=== PATIENT | female | born 1985 | race Asian ===

== ENCOUNTER 2018-04-21 00:23 | Emergency (ER) | payer MEDICAID, SELFPAY ==
[2018-04-21 00:25] VITALS: BP 149/68; PULSE 104; RESP 16; TEMP 36.7; O2SAT 97; BMI 43.2
[2018-04-21 00:27] VITALS: BP 149/63; PULSE 104; RESP 16; TEMP 36.7; O2SAT 98
--- NOTE | 2018-04-21 00:32 | ED.VISSUMM ---
- ER Visit Summary Date of Service: 04/21/18 Chief Complaint: [blood in stool] History of Present Illness: The patient is a 32 F [that noted some bright red blood and clots in her stool yesterday. No abdominal pain. She does describe some hoarseness and general muscle aches. No fevers. She denies any cough or congestion. She overall appears well and nontoxic. She does not take any blood thinning medication. She states she just moved to the area and does not have a primary care physician. She has a history of narcolepsy and takes medications for this. She denies any vaginal bleeding or discharge or hematuria. She has no other complaints.] Physical Examination: [General: The patient appears well and in no apparent distress. Patient is resting comfortably on cart. Skin: Warm, dry, no pallor noted. No rash. Head: Normocephalic, atraumatic Neck: Supple, nontender. ENT: Moist mucus membranes, pharynx within normal limits. Cardiovascular: Regular Rate and Rhythm, no gallups or rubs Respiratory: Patient is in no distress, no accessory muscle use, lungs are clear to auscultation, no wheezing, rales or rhonchi Musculoskeletal: normal ROM, no deformity, no tenderness, no swelling. 2+ radial and DP pulses symmetric. GI: No tenderness to palpation, no masses appreciated. No rebound, guarding, or rigidity noted. Rectal: female RN at bedside, small external nonthrombosed and nonbleeding hemorrhoid, no active bleeding Neurological: A&O, normal strength and sensation. Psychiatric: Cooperative] Test Results: [] Emergency Department Course and Treatment: [Blood work overall unremarkable. Hemoglobin greater than 11. Patient had no bleeding throughout her stay in the emergency department. HCG was negative. I do not feel her presentations are consistent with significant GI bleed. BUN is normal. I feel the bright red blood per rectum is likely secondary to her small external nonthrombosed hemorrhoids on exam. I will write her a prescription for medication for the hemorrhoids and she will follow-up with referred primary provider. She was instructed to return with any new or worsening symptoms. Patient understands and is agreeable with this plan of care. Patient was discharged home in stable condition.] Treatment Plan: [see above] Disposition: [Discharge home, stable condition] Impression: [External hemorrhoid, nonthrombose, bright red blood per rectum] This note was generated with [employer] dictation software. It may contain incorrect words, spelling, and punctuation that were not noted in review of the chart prior to signing ED Disposition - Plan for ED Patient: Disposition: Home or Assisted Living Chief Complaint: GI Bleed Instructions: ED Hemorrhoids, ED Hematochezia Stable Prescriptions: Hydrocortisone Acetate [Anusol-Hc] 25 mg UT BID PRN PRN #14 supp.rect PRN Reason: hemorrhoids Referrals: Malcom Norris DO [STAFF PHYSICIAN] -
[2018-04-21] MEDS: 0.9% Normal Saline 1,000 ML 1000 ML IV (00:37)
[2018-04-21] MEDS: Ketorolac 15 MG/ML Vial IV (00:49)
[2018-04-21 01:00] LABS: Absolute Lymphocyte Count 3.77 X10^3/ul (0.83-4.51); Absolute Neutrophil Count 7.7 X10^3/uL (2.0-7.7); Basophil# 0.05 X10^3/uL; Basophil% 0.4 % (0-1); Eosinophil# 0.29 X10^3/uL; Eosinophils% 2.2 % (0-5); Hemoglobin 11.4 g/dl (12.0-15.0); Lymphocyte # 3.77 X10^3/ul (4.0); Lymphocyte % 28.9 % (19-41); Mean Corp Hgb Conc 31.7 g/gl (32-36); Mean Corpuscular Hgb 21.5 pg (27.0-32.0); Mean Corpuscular Volume 67.9 fL (81-99); Mean Platelet Vol. 9.7 fl (6.2-12.0); Monocyte# 1.17 X10^3/uL; Neutrophil # 7.71 X10^3/uL (2.7-7.7); Neutrophil % 59.1 % (47-70); Platelet Count 345 K/mm3 (150-450); RBC Distribution Width CV 18.6 % (11.6-14.6); RBC Distribution Width SD 45.6 fl (35.1-43.9)
[2018-04-21 01:05] LABS: POSITIVE COUNT NO; POSITIVE DIFFERENTIAL NO; POSITIVE MORPHOLOGY NO
[2018-04-21 01:17] LABS: Anion Gap 9 (5-15); BUN 9 mg/dL (7-18); BUN/Creat Ratio 11.1 RATIO (10-20); Calcium,Total 8.4 mg/dL (8.5-10.1); Chloride 110 mmol/L (98-107); Creatinine, Serum 0.81 mg/dL (0.55-1.02); EST Glomerular Filtration Rate 87 mL/min (>60); Est Glom Filt Rate - Afr Amer 105 mL/min (>60); Estimated Creatinine Clearance 90.55 ml/min; Glucose 103 mg/dL (74-106); Potassium 3.5 mmol/L (3.5-5.1); Sodium Level 143 mmol/L (136-145)
[2018-04-21 01:58] LABS: Internal QC Validated? YES +Cl - CLEAR BKGD; Pregnancy, Urine Negative Negative
[2018-04-21 02:23] VITALS: BP 152/80; PULSE 81; O2SAT 100
== END 2018-04-21 02:30 | disposition home or self-care (01) ==
PROVIDERS: Emergency Provider Emergency Medicine
DX: K64.4 Residual hemorrhoidal skin tags (principal); K92.1 Melena; G47.419 Narcolepsy without cataplexy; E66.9 Obesity, unspecified; Z68.41 Body mass index [BMI] 40.0-44.9, adult
CPT/HCPCS: 80048; 81025; 85025; 96361; 96374; 99283; J7030; A4216

== ENCOUNTER 2018-05-12 01:24 | Emergency (ER) | payer MEDICAID, SELFPAY ==
[2018-05-12] VITALS (7 sets, daily range): BP systolic 124–158; BP diastolic 76–102; PULSE 63–93; RESP 16–18; TEMP 37.1; O2SAT 99–100; BMI 95.7
[2018-05-12 02:12] LABS: Mucous, Urine 0 SEEN /hpf (<or=2+); White Blood Cells 0 SEEN /hpf (0-5)
[2018-05-12 02:13] LABS: Color, Urine Yellow (Yellow); Glucose, Dipstick Normal (Normal); Ketone-Dipstick Negative (Negative); Leukocyte Esterase-Dipstick Negative /ul (Negative); Nitrite-Dipstick Negative (Negative); Occult Blood-Urine 25 /ul (Negative); Protein-Dipstick 15 mg/dl (Negative); Specific Gravity, Urine 1.025 (1.002-1.030); Urine Bilirubin Dipstick Negative (Negative); Urine Clarity Sl. Cloudy (Clear); Urine Urobilinogen Normal (Normal)
[2018-05-12 02:19] LABS: Bacteria 1+ /hpf (None Seen); Red Blood Cells-Urine 0-5 SEEN /hpf (0-5); Squamous Epithelial Cells - UA 0-5 SEEN /hpf (5-10)
[2018-05-12 02:20] LABS: Internal QC Validated? YES +Cl - CLEAR BKGD; Pregnancy, Urine Negative Negative
--- NOTE | 2018-05-12 02:23 | CT_ITS ---
HISTORY: ABD PAIN TECHNIQUE: Helically acquired images were obtained of the abdomen and pelvis without oral or IV contrast as per renal stone protocol. A radiation dose optimization technique was used for this scan. IV Contrast dosage and agent: None. Oral contrast: None. COMPARISON: None FINDINGS: Lower thorax: Clear. No pleural effusion or pericardial effusion. Food contents within the stomach. Contracted gallbladder. No biliary dilatation or pericholecystic inflammatory change. Limited non-infusion exam. Allowing for this, negative liver, spleen, and pancreas. Both kidneys are normal in position. No renal or ureteral calculi and no hydronephrosis or hydroureter. Adrenal glands are not enlarged. Abdominal aorta is normal in caliber. No ascites or retroperitoneal lymphadenopathy. GI tract: No obstruction. Normal appendix. Pelvis: Anteverted uterus. Poor distention of the urinary bladder. No free fluid or lymphadenopathy. Bones: No acute osseous abnormality. CT/Abdomen/Pelvis without Cont IMPRESSION: Negative CT exam. No acute abdominal disease down 5. Individualized dose optimization techniques were used for this CT. at 0318 Reported and signed by: Jason Taveras MD Electronically Signed: Jason Taveras, at 3:17 EST Tel , Service support ,
[2018-05-12] MEDS: 0.9% Normal Saline 1,000 ML 999 ML IV (02:37)
[2018-05-12] MEDS: Ketorolac 30 MG/ML Syringe IV (02:37)
[2018-05-12 02:43] LABS: Absolute Lymphocyte Count 3.42 X10^3/ul (0.83-4.51); Absolute Neutrophil Count 7.4 X10^3/uL (2.0-7.7); Basophil# 0.03 X10^3/uL; Basophil% 0.3 % (0-1); Eosinophil# 0.26 X10^3/uL; Eosinophils% 2.2 % (0-5); Hemoglobin 10.9 g/dl (12.0-15.0); Lymphocyte # 3.42 X10^3/ul (4.0); Lymphocyte % 29.5 % (19-41); Mean Corp Hgb Conc 30.3 g/gl (32-36); Mean Corpuscular Hgb 21.3 pg (27.0-32.0); Mean Corpuscular Volume 70.3 fL (81-99); Mean Platelet Vol. 9.3 fl (6.2-12.0); Monocyte# 0.46 X10^3/uL; Neutrophil # 7.38 X10^3/uL (2.7-7.7); Neutrophil % 63.7 % (47-70); Platelet Count 367 K/mm3 (150-450); RBC Distribution Width CV 18.1 % (11.6-14.6); RBC Distribution Width SD 46.1 fl (35.1-43.9); Red Blood Count 5.12 M/mm3 (4.2-5.4); White Blood Count 11.6 K/mm3 (4.4-11.0)
[2018-05-12 02:44] LABS: Differential Indicated SCAN CRITERIA MET; POSITIVE COUNT NO; POSITIVE DIFFERENTIAL NO; POSITIVE MORPHOLOGY YES
[2018-05-12 02:52] LABS: BUN 10 mg/dL (7-18); Estimated Creatinine Clearance 100.55 ml/min; Glucose 108 mg/dL (74-106)
[2018-05-12 02:53] LABS: Anion Gap 5 (5-15); BUN/Creat Ratio 14.2 RATIO (10-20); Calcium,Total 8.4 mg/dL (8.5-10.1); Chloride 110 mmol/L (98-107); EST Glomerular Filtration Rate 103 mL/min (>60); Est Glom Filt Rate - Afr Amer 124 mL/min (>60); Potassium 3.7 mmol/L (3.5-5.1); Sodium Level 142 mmol/L (136-145)
--- NOTE | 2018-05-12 03:55 | US_ITS ---
HISTORY: PPelvic PainUS - Pelvic, TvagBILAT PELVIC PAIN X 1 DAY- WORSE ON LEFT SIDE TECHNIQUE: Transabdominal and transvaginal pelvic ultrasound was performed. COMPARISON: CT abdomen and pelvis 05/12/2018 FINDINGS: The uterus is anteverted and is borderline enlarged measuring 11.3 x 5 x 7 cm in longitudinal, AP, and transverse dimensions, respectively. The uterine myometrium is unremarkable. 0.9 cm cervical nabothian cyst. The endometrium is uniform and measures 0.8 cm in diameter which is normal. Both ovaries are identified and show normal flow without findings of torsion. The right ovary measures approximately 3.1 x 2.5 x 1.6 cm and the left ovary 3.4 x 2.5 x 2.4 cm. Left ovarian simple appearing 2.1 x 1.9 cm cyst. No free pelvic fluid. US/Pelvic (Non ) IMPRESSION: 1. No free fluid, ovarian torsion, or acute disease identified. 2. Borderline uterine enlargement. 3. Left ovarian 2.1 cm simple appearing cyst. at 0628 Reported and signed by: Jason Taveras MD Electronically Signed: Jason Taveras, at 6:26 EST Tel , Service support ,
--- NOTE | 2018-05-12 03:55 | US_ITS ---
HISTORY: PPelvic PainUS - Pelvic, TvagBILAT PELVIC PAIN X 1 DAY- WORSE ON LEFT SIDE TECHNIQUE: Transabdominal and transvaginal pelvic ultrasound was performed. COMPARISON: CT abdomen and pelvis 05/12/2018 FINDINGS: The uterus is anteverted and is borderline enlarged measuring 11.3 x 5 x 7 cm in longitudinal, AP, and transverse dimensions, respectively. The uterine myometrium is unremarkable. 0.9 cm cervical nabothian cyst. The endometrium is uniform and measures 0.8 cm in diameter which is normal. Both ovaries are identified and show normal flow without findings of torsion. The right ovary measures approximately 3.1 x 2.5 x 1.6 cm and the left ovary 3.4 x 2.5 x 2.4 cm. Left ovarian simple appearing 2.1 x 1.9 cm cyst. No free pelvic fluid. US/Transvaginal Non- IMPRESSION: 1. No free fluid, ovarian torsion, or acute disease identified. 2. Borderline uterine enlargement. 3. Left ovarian 2.1 cm simple appearing cyst. at 0628 Reported and signed by: Jason Taveras MD Electronically Signed: Jason Taveras, at 6:26 EST Tel , Service support ,
[2018-05-12] MEDS: Ondansetron 4 MG/2 ML Vial IV (04:11)
[2018-05-12] MEDS: Morphine 4 MG/ML Syringe IV (04:11)
[2018-05-12 06:10] LABS: Chlamydia Trachomatis by PCR Negative (Negative); Neisserai gonorrhoeae by PCR Negative (Negative); Probe Check PASS; Sample Adequacy Control PASS; Specimen Processing Control PASS
--- NOTE | 2018-05-12 06:30 | ED.DCSUM_ITS ---
- ER Visit Summary Date of Service: 05/12/18 Chief Complaint: Unable to pee since yesterday History of Present Illness: The patient is a 32 F who states she has been unable to void since yesterday. However on further history she is actually able to void small amount she describes dysuria as well as urinary urgency and frequency with frequently urinating small amounts. No hematuria. Her last menstrual period was around April 28. No vaginal bleeding. No vaginal discharge. She also complains of pelvic pain all the way across the lower abdomen. She reports nausea without vomiting. No diarrhea. No fevers. No history of prior similar symptoms. She does have a history of multiple C- sections as well as diagnostic laparoscopy. Physical Examination: Blood pressure 158/102 vitals otherwise normal Moist mucous membranes Heart regular rate and rhythm Lungs are clear Abdomen soft nondistended she does have some suprapubic and bilateral lower abdominal pain on palpation but no guarding, no rebound Alert Test Results: Labs notable for white blood cell count 11.6, hemoglobin 10.9. Chemistries unremarkable. Urinalysis shows 25 blood otherwise normal. negative. Wet prep negative. GC and Chlamydia negative. CT abdomen pelvis negative. Emergency Department Course and Treatment: Initially given patient's reports of dysuria frequency urgency suprapubic pain, we just sent off a urinalysis and to evaluate for UTI. These were unremarkable. At this point I considered distal ureteral calculus. IV was established, patient given IV Toradol. Laboratory studies were obtained as well as a CT of the abdomen and pelvis. This is also normal. Reevaluation she was sleeping comfortably but on waking states she had no improvement of her pain. Was given morphine and Zofran. Pelvic examination was performed which showed a very small amount of thin white vaginal discharge. No cervical friability or bleeding. She had some mild left adnexal tenderness on bimanual exam although I did not appreciate a mass. GC chlamydia and wet prep were sent all of which are normal. Patient sent for pelvic ultrasound. Ultrasound shows no free fluid. She does have a simple appearing 2.1 cm left ovarian cyst. She feels much better on reevaluation. She was given a referral to gynecology for outpatient follow-up. She was given a prescription for naproxen. Was advised on signs and symptoms to monitor for. She understands to return for new or worsening symptoms. She was discharged. Treatment Plan: [] Disposition: Discharge Impression: Left ovarian cyst This note was generated with [employer] dictation software. It may contain incorrect words, spelling, and punctuation that were not noted in review of the chart prior to signing ED Disposition - Plan for ED Patient: Referrals: Care Physician,No Primary [Primary Care Provider] -
--- NOTE | 2018-05-12 06:35 | ED.DEP ---
ED Disposition - Plan for ED Patient: Instructions: ED Cyst Ovarian Prescriptions: Naproxen [Naprosyn] 500 mg PO BID #14 tab Referrals: Care Physician,No Primary [Primary Care Provider] - Pauline Franks MD [STAFF PHYSICIAN] -
== END 2018-05-12 06:46 | disposition home or self-care (01) ==
PROVIDERS: Emergency Provider Emergency Medicine
DX: N83.292 Other ovarian cyst, left side (principal); Z72.0 Tobacco use
CPT/HCPCS: 74176; 76830; 76856; 80048; 81001; 81025; 85025; 87210; 87491; 87591; 93976; 96374; 96375; 99283; J2405

== ENCOUNTER 2018-06-18 06:00 | Emergency (ER) | payer MEDICAID, SELFPAY ==
[2018-05-12 01:24] VITALS: BMI 95.7
[2018-06-18 06:01] VITALS: BP 160/89; PULSE 88; RESP 18; TEMP 37.1; O2SAT 98; BMI 46.0
--- NOTE | 2018-06-18 06:20 | ED.DCSUM_ITS ---
- ER Visit Summary Date of Service: 06/18/18 Chief Complaint: Vomiting and diarrhea History of Present Illness: The patient is a 32 F who notes 1-1/2 days of vomiting and diarrhea. She denies any fever. She describes the diarrhea is nonbloody she notes a crampy intermittent abdominal pain. She states that she has not taken any Imodium. No rashes. No bad food exposure. No recent antibiotics. She has city water. Physical Examination: Afebrile vital signs are stable Gen: Well-nourished well-developed Head: Normocephalic atraumatic Eyes: Perrl EOMI ENT: TMs clear no rhinorrhea moist mucous membranes Neck: Supple no lymphadenopathy no JVD nontender CVS: Regular rate rhythm no murmurs normal S1-S2 Respiratory: No distress clear to auscultation bilaterally chest nontender Abdomen: Soft nontender nondistended normal bowel sounds no masses Back: Nontender Extremity: Nontender no edema Skin: Normal color no rash Neuro: alert orientated ?3 CN II-XII intact normal strength sensation reflexes gait cerebellar Psych: Normal affect normal mood Emergency Department Course and Treatment: Patient will be prescribed Zofran. Recommend Imodium. Oral hydration. Impression: 1. Acute gastroenteritis This note was generated with [employer] dictation software. It may contain incorrect words, spelling, and punctuation that were not noted in review of the chart prior to signing ED Disposition - Plan for ED Patient: Disposition: Home or Assisted Living Instructions: ED Gastroenteritis Viral Prescriptions: Ondansetron [Zofran Odt] 4 mg PO Q6H PRN PRN #20 tab PRN Reason: Nausea Referrals: Venancio Lott MD [STAFF PHYSICIAN] -
[2018-06-18] MEDS: Ondansetron ODT 4 MG Tablet PO (06:33)
[2018-06-18 06:50] VITALS: RESP 16
== END 2018-06-18 07:05 | disposition home or self-care (01) ==
PROVIDERS: Emergency Provider Emergency Medicine
DX: K52.9 Noninfective gastroenteritis and colitis, unspecified (principal); Z72.0 Tobacco use
CPT/HCPCS: 99282

== ENCOUNTER 2018-07-20 22:59 | Emergency (ER) | payer MEDICAID, SELFPAY ==
[2018-07-20 22:59] VITALS: BP 140/84; PULSE 89; RESP 16; TEMP 36.6; O2SAT 98; BMI 42.9
[2018-07-21] MEDS: Ketorolac 30 MG/ML Syringe IV (00:03)
[2018-07-21] MEDS: 0.9% Normal Saline 1,000 ML 999 ML IV (00:03)
[2018-07-21] MEDS: proCHLORPERazine 10 MG/2 ML Vial IV (00:03)
[2018-07-21] MEDS: DiphenhydrAMINE 50 MG/ML Syringe 25 MG IV (00:03)
--- NOTE | 2018-07-21 01:16 | ED.VISSUMM ---
- ER Visit Summary Date of Service: 07/21/18 Chief Complaint: Headache History of Present Illness: The patient is a 32 F who presents with a headache. Is been present for 1 week. She rates it as a 9 out of 10. She reports light and sound sensitivity as well. 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 She is tried Tylenol as well as a combination Tylenol caffeine pill without relief. She also has been complaining of some itching all over her body. She denies fevers chest pain shortness of breath nausea vomiting diarrhea. Physical Examination: Blood pressure 140/84 vitals otherwise normal Moist mucous membranes No distress Heart regular rate and rhythm Lungs are clear Abdomen soft Alert and oriented with no focal or lateralizing neurological deficits Test Results: Not indicated Emergency Department Course and Treatment: Patient was treated with IV fluids, Toradol, Compazine, Benadryl. On reevaluation she feels much better. Patient discharged. He understands to return for new or worsening symptoms. Treatment Plan: [] Disposition: Discharge Impression: Headache, improved This note was generated with [employer] dictation software. It may contain incorrect words, spelling, and punctuation that were not noted in review of the chart prior to signing ED Disposition - Plan for ED Patient: Referrals: Care Physician,No Primary [Primary Care Provider] -
--- NOTE | 2018-07-21 01:17 | ED.DEP ---
ED Disposition - Plan for ED Patient: Instructions: ED Cephalgia Unspecified Referrals: Care Physician,No Primary [Primary Care Provider] -
[2018-07-21 01:29] VITALS: BP 135/74; PULSE 68; RESP 17; O2SAT 99
== END 2018-07-21 01:38 | disposition home or self-care (01) ==
LOC: ED 23:57
PROVIDERS: Emergency Provider Emergency Medicine
DX: R51 Headache (principal); G47.419 Narcolepsy without cataplexy; Z72.0 Tobacco use
CPT/HCPCS: 96361; 96374; 96375; 99283; J7030; A4216